=== PATIENT | female | born 1940 | race Caucasian/White ===

== ENCOUNTER 2016-06-01 16:53 | Observation (INO) | payer MEDICARE, OTHER ==
[2016-06-01] MEDS ORDERED: COZAAR50 M1 PO (17:20)
[2016-06-01] MEDS ORDERED: SYNTHROID100 MC1 PO (17:21)
[2016-06-01] MEDS ORDERED: OMEPRAZOLE20 M3 PO (17:21)
[2016-06-01] MEDS ORDERED: CALCIUM500 M3 PO (17:21)
[2016-06-01] MEDS ORDERED: VITAMIN D31000 UNI4 PO (17:22)
[2016-06-01] MEDS ORDERED: MELOXICAM7.5 M1 PO (17:22)
[2016-06-01 17:41] LABS: BASO % 0.4 % (0-2); EOS % 1.2 % (0-7); EOSINOPHIL ABSOLUTE COUNT 0.1 tho/cmm (0.0-0.7); HCT-HEMATOCRIT 40.9 % (34.0-49.0); HGB-HEMOGLOBIN 13.6 gm/dl (12.0-15.5); IMMATURE GRANULOCYTES ABSOLUTE 0.01 tho/cmm (0-0.03); IMMATURE GRANULOCYTES PERCENT 0.1 % (0-0.3); LYMPH % 29.6 % (20-45); LYMPH ABSOLUTE COUNT 2.5 tho/cmm (0.8-4.5); MCH (MEAN CORPUSCULAR HGB) 30.6 pg (28.0-32.0); MCHC MEAN CORPUSCULAR HGB CONC 33.3 % (32.0-36.0); MCV (MEAN CELL VOLUME) 91.9 fl (82.0-96.0); MEAN PLATELET VOLUME 11.5 cmc (9.4-12.4); MONO % 8.3 % (0-12); MONOCYTE ABSOLUTE COUNT 0.7 tho/cmm (0.0-1.2); NEUTROPHIL ABSOLUTE COUNT 5.2 tho/cmm (1.6-8.0); NEUTROPHIL-AUTOMATED 5.2 tho/cmm (1.6-8.0); NEUTROPHILS % 60.4 % (40-80); PLATELET COUNT 228 tho/cmm (150-450); RED BLOOD COUNT 4.45 mil/cmm (4.00-5.20); RED CELL DISTRIBUTION WIDTH 12.9 % (12.4-16.4); WHITE BLOOD COUNT 8.6 tho/cmm (4.0-10.0)
[2016-06-01 18:17] LABS: ALB/GLOB RATIO 1.1 (0.8-2.0); ALBUMIN 3.8 g/dl (3.5-5.0); ALKALINE PHOSPHATASE 77 U/L (33-138); ALT/SGPT 26 U/L (12-78); BILIRUBIN,DIRECT 0.1 mg/dl (0.0-0.3); BILIRUBIN,INDIRECT 0.3 mg/dL (0.0-1.0); BILIRUBIN,TOTAL 0.4 mg/dl (0-1.5); BLOOD UREA NITROGEN 16 mg/dl (6-24); CARBON DIOXIDE-VENOUS 29 mmol/L (22-32); CHLORIDE 105 mmol/l (96-110); CREATININE 0.83 mg/dl (0.50-1.10); GLUCOSE 93 mg/dL (70-110); SODIUM 142 mmol/L (135-145); eGFR VALUE FOR BLACK 79 mL/Min
[2016-06-01 18:19] LABS: ANION GAP 12 mmol/L (0-20); AST/SGOT 26 U/L (10-40)
[2016-06-01 18:20] LABS: POTASSIUM 3.9 mmol/L (3.7-5.1)
[2016-06-02] MEDS ORDERED: ASPIRIN81 M1 PO (10:57)
== END 2016-06-02 16:40 ==
LOC: EDMED 16:53 → EMR2 18:58 → CAR1 22:05
PROVIDERS: Emergency Medicine; Physician Assistant Medical; ADMIT Internal Medicine Cardiovascular Disease
DX: R07.89 Other chest pain (principal); M19.90 Unspecified osteoarthritis, unspecified site; E03.9 Hypothyroidism, unspecified; I10 Essential (primary) hypertension; I07.1 Rheumatic tricuspid insufficiency; Z79.1 Long term (current) use of non-steroidal anti-inflammatories (NSAID); Z79.899 Other long term (current) drug therapy; Z82.49 Family history of ischemic heart disease and other diseases of the circulatory system; Z90.89 Acquired absence of other organs
CPT/HCPCS: A9500; G0378; J2785